=== PATIENT | male | born 1955 | race African-American/Black ===

== ENCOUNTER 2022-03-30 01:37 | Inpatient (IN) | payer OTHER ==
[~2022-03-30] VITALS: Ht 175.3 cm; Wt 97.5 kg
[2022-03-30] MEDS ORDERED: ACETAMINOPHEN 500MG TABLET PO ONE (03:15)
[2022-03-30] MEDS ORDERED: MORPHINE SULFATE 4 MG/ML CPJ (NOT FOR IM USE) IV STA (03:45)
[2022-03-30] MEDS ORDERED: ONDANSETRON HCL 4MG/2ML INJ IV STA (03:45)
[2022-03-30 04:18] LABS: BASOPHILS % 0.7 % (0.0-2.0); HEMATOCRIT. 26.9 % (42.0-52.0); HEMOGLOBIN. 8.8 g/dL (14.0-18.0); MEAN CORPUSCULAR HEMOGLOBIN 28.6 pg (28.0-32.0); MEAN CORPUSCULAR VOLUME 87.1 fL (80.0-94.0); MEAN PLATELET VOLUME 8.3 fl (7.4-10.4); NEUTROPHILS % 67.3 % (40.0-76.0); PLATELET 199 x1000/uL (130-400); RED BLOOD CELL COUNT 3.09 mill/uL (4.7-6.1); RED CELL DISTRIBUTION WIDTH 19.6 % (11.6-14.6)
[2022-03-30 05:07] LABS: CHLORIDE 94 mEq/L (98-107)
[2022-03-30 08:51] VITALS: BP 178/108
[2022-03-30 09:12] VITALS: BP 178/108
[2022-03-30] MEDS ORDERED: OMEP20TA23 MT (09:23)
[2022-03-30] MEDS ORDERED: FERR325T6 MT (09:23)
[2022-03-30] MEDS ORDERED: VITA400T9 PO (09:23)
[2022-03-30] MEDS ORDERED: CYAN50009 PO (09:23)
[2022-03-30] MEDS ORDERED: LEVO75TA7 MT (09:23)
[2022-03-30] MEDS ORDERED: HYDR2TAB7 MT (09:23)
[2022-03-30] MEDS ORDERED: FOLI-43 PO (09:23)
[2022-03-30] MEDS ORDERED: ASCO500C15 MT (09:23)
[2022-03-30] MEDS ORDERED: ASPI-1079 PO (09:23)
[2022-03-30] MEDS ORDERED: ATOR40TA70 MT (09:23)
[2022-03-30] MEDS ORDERED: ONDANSETRON HCL 4MG/2ML INJ IV PRN (10:15)
[2022-03-30] MEDS ORDERED: DOCUSATE SODIUM 100MG CAPSULE PO PRN (10:15)
[2022-03-30] MEDS ORDERED: ACETAMINOPHEN 325MG TABLET PO PRN ×2 (10:15)
[2022-03-30] MEDS ORDERED: GUAIFENESIN 200MG/10ML SUGAR FREE UDC PO PRN (10:15)
[2022-03-30] MEDS ORDERED: NITROGLYCERIN 0.4MG TABLET SL SL PRN (10:15)
[2022-03-30] MEDS ORDERED: CLONIDINE 0.1MG TABLET PO PRN (10:15)
[2022-03-30] MEDS ORDERED: MAGNESIUM/ALUMINUM HYDROXIDE/SIMETHICONE 30ML UDC PO PRN (10:15)
[2022-03-30] MEDS ORDERED: ZOLPIDEM TARTRATE 5MG TABLET PO PRN (10:15)
[2022-03-30] MEDS ORDERED: *PATIENT'S OWN MEDICATION STORAGE XX SCH (10:15)
[2022-03-30] MEDS ORDERED: IPRATROPIUM/ALBUTEROL 0.5-3(2.5)MG/3ML NEB NEB PRN (10:15)
[2022-03-30] MEDS: MANNITOL 12.5G (25%) VIAL 50ML IV NR ×2 (10:30→12:17)
[2022-03-30] MEDS ORDERED: TUBERCULIN,PURIF.PROT.DERIV. 5 TU/0.1 ML SYR ID ONE (10:30)
[2022-03-30] MEDS ORDERED: ERGO1250 PO (10:38)
[2022-03-30] MEDS: ENOXAPARIN 30MG/0.3ML SYR SUBCUT SCH (11:00)
[2022-03-30] MEDS: FAMOTIDINE 20MG TABLET PO SCH (11:00)
[2022-03-30 12:30] VITALS: BP 185/112
[2022-03-30] MEDS: HYDRALAZINE HCL 50MG TABLET PO SCH ×2 (14:00→21:03)
[2022-03-30] MEDS: AMLODIPINE 10MG TABLET PO SCH (15:14)
[2022-03-30 15:15] VITALS: BP 140/83
[2022-03-30] MEDS ORDERED: EPOETIN ALFA-EPBX 4,000 UNIT/ML VIAL SUBCUT SCH (21:00)
[2022-03-30] MEDS: LEVOTHYROXINE SODIUM 75MCG TABLET PO SCH (21:21)
[2022-03-30] MEDS: ATORVASTATIN CALCIUM 40MG TABLET PO SCH (21:21)
[2022-03-31 00:25] LABS: CREATINE KINASE MB FRACTION 6.6 ng/mL (0.5-3.6)
[2022-03-31 00:40] LABS: HEPATITIS B SURFACE ANTIGEN NEGATIVE
[2022-03-31] MEDS: LEVOTHYROXINE SODIUM 75MCG TABLET PO SCH (05:18)
[2022-03-31] MEDS: HYDRALAZINE HCL 50MG TABLET PO SCH ×3 (05:22→21:07)
[2022-03-31] MEDS ORDERED: LEVOTHYROXINE SODIUM 75MCG TABLET PO SCH (07:20)
[2022-03-31 08:00] VITALS: BP 165/101
[2022-03-31] MEDS: AMLODIPINE 10MG TABLET PO SCH (09:00)
[2022-03-31] MEDS: FAMOTIDINE 20MG TABLET PO SCH (09:00)
[2022-03-31] MEDS: FOLIC ACID/VITAMIN B COMP W-C TABLET PO SCH (10:00)
[2022-03-31] MEDS: ASPIRIN 325MG EC TABLET PO SCH (10:48)
[2022-03-31] MEDS: ASCORBIC ACID 500 MG TABLET PO SCH (10:52)
[2022-03-31] MEDS: ENOXAPARIN 30MG/0.3ML SYR SUBCUT SCH (11:00)
[2022-03-31 16:00] VITALS: BP 165/105
[2022-03-31 20:00] VITALS: BP 172/110
[2022-03-31] MEDS: ATORVASTATIN CALCIUM 40MG TABLET PO SCH (21:07)
[2022-04-01] MEDS: HYDRALAZINE HCL 50MG TABLET PO SCH ×3 (05:32→21:47)
[2022-04-01] MEDS: LEVOTHYROXINE SODIUM 75MCG TABLET PO SCH (07:51)
[2022-04-01] MEDS: AMLODIPINE 10MG TABLET PO SCH (09:00)
[2022-04-01] MEDS: ASPIRIN 325MG EC TABLET PO SCH (09:00)
[2022-04-01] MEDS: FAMOTIDINE 20MG TABLET PO SCH (09:00)
[2022-04-01] MEDS: ASCORBIC ACID 500 MG TABLET PO SCH (09:00)
[2022-04-01] MEDS: FOLIC ACID/VITAMIN B COMP W-C TABLET PO SCH (09:00)
[2022-04-01] MEDS ORDERED: REGADENOSON 0.4 MG/5 ML IV ONE (10:15)
[2022-04-01 11:00] VITALS: BP 148/86
[2022-04-01] MEDS: ENOXAPARIN 30MG/0.3ML SYR SUBCUT SCH (11:00)
[2022-04-01 17:00] VITALS: BP 153/89
[2022-04-01 20:00] VITALS: BP 144/98
[2022-04-01] MEDS: ATORVASTATIN CALCIUM 40MG TABLET PO SCH (21:00)
[2022-04-02] VITALS: BP 147/73
[2022-04-02 04:00] VITALS: BP 141/88
[2022-04-02] MEDS: HYDRALAZINE HCL 50MG TABLET PO SCH ×3 (06:00→21:18)
[2022-04-02] MEDS: LEVOTHYROXINE SODIUM 75MCG TABLET PO SCH (06:19)
[2022-04-02] MEDS: FAMOTIDINE 20MG TABLET PO SCH (09:00)
[2022-04-02] MEDS: FOLIC ACID/VITAMIN B COMP W-C TABLET PO SCH (09:00)
[2022-04-02] MEDS: AMLODIPINE 10MG TABLET PO SCH (09:00)
[2022-04-02] MEDS: ASPIRIN 81MG EC TABLET PO SCH (09:00)
[2022-04-02] MEDS: ISOSORBIDE DINITRATE 10MG TABLET PO SCH ×3 (09:00→17:00)
[2022-04-02] MEDS: ASCORBIC ACID 500 MG TABLET PO SCH (09:00)
[2022-04-02] MEDS: CARVEDILOL 6.25 MG TABLET PO SCH ×2 (09:00→21:17)
[2022-04-02] MEDS: ENOXAPARIN 30MG/0.3ML SYR SUBCUT SCH (11:00)
[2022-04-02 20:00] VITALS: BP 134/65
[2022-04-02] MEDS: ATORVASTATIN CALCIUM 40MG TABLET PO SCH (21:17)
[2022-04-03] VITALS: BP 127/81
[2022-04-03 04:00] VITALS: BP 132/84
[2022-04-03] MEDS: HYDRALAZINE HCL 50MG TABLET PO SCH ×2 (05:55→13:44)
[2022-04-03 08:00] VITALS: BP 129/89
[2022-04-03] MEDS: CARVEDILOL 6.25 MG TABLET PO SCH (09:00)
[2022-04-03] MEDS: AMLODIPINE 10MG TABLET PO SCH (09:00)
[2022-04-03 12:00] VITALS: BP 138/61
[2022-04-03] MEDS: FOLIC ACID/VITAMIN B COMP W-C TABLET PO SCH (13:40)
[2022-04-03] MEDS: ASPIRIN 81MG EC TABLET PO SCH (13:41)
[2022-04-03] MEDS: ISOSORBIDE DINITRATE 10MG TABLET PO SCH ×2 (13:42→13:45)
[2022-04-03] MEDS: ASCORBIC ACID 500 MG TABLET PO SCH (13:42)
[2022-04-03] MEDS: FAMOTIDINE 20MG TABLET PO SCH (13:42)
[2022-04-03] MEDS: LEVOTHYROXINE SODIUM 75MCG TABLET PO SCH (13:42)
[2022-04-03] MEDS: ENOXAPARIN 30MG/0.3ML SYR SUBCUT SCH (13:44)
[2022-04-03 16:00] VITALS: BP 141/85
== END 2022-04-03 18:22 | disposition left against medical advice (07) | DRG 280 ==
LOC: ER 01:37 → 6WST 05:18
PROVIDERS: ADMIT Internal Medicine; ATTEND Internal Medicine
PROC: 5A1D70Z Performance of Urinary Filtration, Intermittent, Less than 6 Hours Per Day (ICD-10-PCS; principal; 2022-03-30)
PROC: 5A1D70Z Performance of Urinary Filtration, Intermittent, Less than 6 Hours Per Day (ICD-10-PCS; 2022-04-01)
DX: I13.2 Hypertensive heart and chronic kidney disease with heart failure and with stage 5 chronic kidney disease, or end stage renal disease (principal); I21.A1 Myocardial infarction type 2; I50.43 Acute on chronic combined systolic (congestive) and diastolic (congestive) heart failure; N18.6 End stage renal disease; I16.1 Hypertensive emergency; D63.1 Anemia in chronic kidney disease; Z20.822 Contact with and (suspected) exposure to COVID-19; E83.51 Hypocalcemia; J45.909 Unspecified asthma, uncomplicated; E03.9 Hypothyroidism, unspecified; E78.00 Pure hypercholesterolemia, unspecified; B19.20 Unspecified viral hepatitis C without hepatic coma; R77.8 Other specified abnormalities of plasma proteins; G40.909 Epilepsy, unspecified, not intractable, without status epilepticus; J44.9 Chronic obstructive pulmonary disease, unspecified; Z53.29 Procedure and treatment not carried out because of patient's decision for other reasons; Z99.2 Dependence on renal dialysis; Z79.899 Other long term (current) drug therapy; Z59.00 Homelessness unspecified; Z91.15 Patient's noncompliance with renal dialysis; Z88.8 Allergy status to other drugs, medicaments and biological substances
CPT/HCPCS: 36415; 71045; 80053; 80061; 82550; 82553; 83036; 84484; 85025; 86705; 86706; 86709; 86803; 87340; 87426; 90585; 93005; 93306; 93970; 99285; J0885; J1650; J2150; J2270; J2405; J2785

== ENCOUNTER 2022-04-04 04:10 | Emergency (ER) | payer OTHER ==
[~2022-04-04] VITALS: Ht 172.7 cm; Wt 92.4 kg
[~2022-04-04 04:10] MED LIST: ASCO500C15 MT; ASPI-1079 PO; ATOR40TA70 MT; CYAN50009 PO; ERGO1250 PO; FERR325T6 MT; FOLI-43 PO; HYDR2TAB7 MT; LEVO75TA7 MT; OMEP20TA23 MT; VITA400T9 PO
[2022-04-04] MEDS ORDERED: CLONIDINE 0.1MG TABLET PO PRN (09:15)
[2022-04-04] MEDS ORDERED: ONDANSETRON HCL 4MG/2ML INJ IV PRN (09:15)
[2022-04-04] MEDS ORDERED: MAGNESIUM/ALUMINUM HYDROXIDE/SIMETHICONE 30ML UDC PO PRN (09:15)
[2022-04-04] MEDS ORDERED: KETOROLAC 15MG/ML VIAL IV PRN (09:15)
[2022-04-04] MEDS ORDERED: DOCUSATE SODIUM 100MG CAPSULE PO PRN (09:15)
[2022-04-04] MEDS ORDERED: AMLODIPINE 10MG TABLET PO SCH (09:30)
[2022-04-04 09:51] LABS: BASOPHILS % 0.6 % (0.0-2.0); EOSINOPHILS % 7.9 % (0.0-5.0); HEMATOCRIT. 32.4 % (42.0-52.0); HEMOGLOBIN. 10.3 g/dL (14.0-18.0); MEAN CORPUSCULAR VOLUME 88.6 fL (80.0-94.0); MEAN PLATELET VOLUME 8.7 fl (7.4-10.4); MONOCYTES % 14.3 % (2.0-8.0); NEUTROPHILS % 64.2 % (40.0-76.0); PLATELET 250 x1000/uL (130-400); RED BLOOD CELL COUNT 3.66 mill/uL (4.7-6.1); RED CELL DISTRIBUTION WIDTH 19.1 % (11.6-14.6)
[2022-04-04 09:57] LABS: CHLORIDE 96 mEq/L (98-107)
[2022-04-04 10:11] LABS: PHOSPHORUS 5.4 mg/dL (2.5-4.9)
[2022-04-04 10:15] VITALS: BP 135/85
[2022-04-04] MEDS ORDERED: ENOXAPARIN 40MG/0.4ML SYR SUBCUT SCH (11:00)
[2022-04-04] MEDS ORDERED: TRAMADOL 50MG TABLET PO PRN (11:30)
== END 2022-04-04 11:23 | disposition home or self-care (01) ==
LOC: ER 04:34 → CANBEDREQ 10:53 → ER 11:23
DX: R07.89 Other chest pain (principal); R00.0 Tachycardia, unspecified; D63.1 Anemia in chronic kidney disease; Z91.15 Patient's noncompliance with renal dialysis; I12.0 Hypertensive chronic kidney disease with stage 5 chronic kidney disease or end stage renal disease; N18.6 End stage renal disease; Z99.2 Dependence on renal dialysis; Z59.00 Homelessness unspecified; Z86.19 Personal history of other infectious and parasitic diseases
CPT/HCPCS: 36415; 71045; 80053; 83735; 84100; 85025; 93005; 99285

== ENCOUNTER 2022-04-04 20:00 | Emergency (ER) | payer OTHER ==
[~2022-04-04] VITALS: Ht 172.7 cm; Wt 92.4 kg
[2022-04-05] MEDS ORDERED: TRAMADOL 50MG TABLET PO ONE (03:00)
[2022-04-05 04:27] LABS: HEMATOCRIT. 30.8 % (42.0-52.0); HEMOGLOBIN. 9.9 g/dL (14.0-18.0); MEAN CORPUSCULAR HEMOGLOBIN 28.2 pg (28.0-32.0); MEAN CORPUSCULAR VOLUME 87.7 fL (80.0-94.0); MEAN PLATELET VOLUME 8.4 fl (7.4-10.4); PLATELET 256 x1000/uL (130-400); RED BLOOD CELL COUNT 3.51 mill/uL (4.7-6.1); RED CELL DISTRIBUTION WIDTH 19.2 % (11.6-14.6)
[2022-04-05 04:45] LABS: CHLORIDE 98 mEq/L (98-107)
[2022-04-05] MEDS ORDERED: TRAMADOL 50MG TABLET PO NR (04:45)
[2022-04-05 04:57] LABS: ETHANOL BLOOD < 10 mg/dL; PHOSPHORUS 5.9 mg/dL (2.5-4.9)
[2022-04-05 05:21] LABS: PLATELET ESTIMATE NORMAL
[2022-04-05] MEDS ORDERED: MAGNESIUM/ALUMINUM HYDROXIDE/SIMETHICONE 30ML UDC PO PRN (08:00)
[2022-04-05] MEDS ORDERED: CLONIDINE 0.1MG TABLET PO PRN (08:00)
[2022-04-05] MEDS ORDERED: IPRATROPIUM/ALBUTEROL 0.5-3(2.5)MG/3ML NEB NEB PRN (08:00)
[2022-04-05] MEDS ORDERED: GUAIFENESIN 200MG/10ML SUGAR FREE UDC PO PRN (08:00)
[2022-04-05] MEDS ORDERED: ONDANSETRON HCL 4MG/2ML INJ IV PRN (08:00)
[2022-04-05] MEDS ORDERED: ENOXAPARIN 40MG/0.4ML SYR SUBCUT SCH (09:00)
[2022-04-05 10:00] VITALS: BP 182/99
== END 2022-04-05 15:13 | disposition home or self-care (01) ==
LOC: ER 20:00 → SUPCPDRO 04-05 07:15 → CANBEDREQ 04-05 14:35 → ER 04-05 15:13
DX: I12.0 Hypertensive chronic kidney disease with stage 5 chronic kidney disease or end stage renal disease (principal); N18.6 End stage renal disease; D63.1 Anemia in chronic kidney disease; M79.18 Myalgia, other site; E83.39 Other disorders of phosphorus metabolism; E03.9 Hypothyroidism, unspecified; R01.1 Cardiac murmur, unspecified; Z99.2 Dependence on renal dialysis; Z91.15 Patient's noncompliance with renal dialysis; Z59.00 Homelessness unspecified
CPT/HCPCS: 36415; 80053; 80320; 83735; 84100; 85025; 93005; 99284; G0480

== ENCOUNTER 2022-04-08 04:38 | Emergency (ER) | payer OTHER ==
[~2022-04-08] VITALS: Ht 172.7 cm; Wt 93.8 kg
[~2022-04-08 04:38] MED LIST changes: -HYDR2TAB7 MT
[2022-04-08 06:43] LABS: CHLORIDE 96 mEq/L (98-107); HEMATOCRIT. 25.6 % (42.0-52.0); HEMOGLOBIN. 8.4 g/dL (14.0-18.0); MEAN CORPUSCULAR HEMOGLOBIN 28.6 pg (28.0-32.0); MEAN CORPUSCULAR VOLUME 86.8 fL (80.0-94.0); MEAN PLATELET VOLUME 7.7 fl (7.4-10.4); PLATELET 233 x1000/uL (130-400); RED BLOOD CELL COUNT 2.94 mill/uL (4.7-6.1); RED CELL DISTRIBUTION WIDTH 19.4 % (11.6-14.6)
[2022-04-08 08:00] VITALS: BP 143/66
[2022-04-08 10:03] LABS: PLATELET ESTIMATE NORMAL
== END 2022-04-08 08:56 | disposition home or self-care (01) ==
LOC: ER 04:38
DX: N18.6 End stage renal disease (principal); D64.9 Anemia, unspecified; J45.909 Unspecified asthma, uncomplicated; F17.290 Nicotine dependence, other tobacco product, uncomplicated; Z79.899 Other long term (current) drug therapy; Z99.2 Dependence on renal dialysis
CPT/HCPCS: 36415; 80053; 83735; 85025; 99283

== ENCOUNTER 2022-08-19 04:39 | Emergency (ER) | payer OTHER ==
[~2022-08-19] VITALS: Ht 172.7 cm; Wt 85.0 kg
[~2022-08-19 04:39] MED LIST changes: +ASPI-1497 MT; +COR6 MT; +HYDR-4134 MT; +ISOS10TA2 MT
[2022-08-19 05:10] VITALS: BP 131/76
[2022-08-19] MEDS ORDERED: SODI325T MT (05:58)
[2022-08-19] MEDS ORDERED: LEVO75TA7 MT (05:58)
[2022-08-19] MEDS ORDERED: PSEU30CA2 PO (09:29)
[2022-08-19] MEDS ORDERED: BENZ100C86 MT (09:29)
== END 2022-08-19 09:54 | disposition home or self-care (01) ==
LOC: ER 04:39
DX: J06.9 Acute upper respiratory infection, unspecified (principal); I10 Essential (primary) hypertension; E11.9 Type 2 diabetes mellitus without complications; J45.909 Unspecified asthma, uncomplicated; Z20.822 Contact with and (suspected) exposure to COVID-19; Z88.6 Allergy status to analgesic agent; Z79.899 Other long term (current) drug therapy; Z79.82 Long term (current) use of aspirin; Z98.890 Other specified postprocedural states; Z76.0 Encounter for issue of repeat prescription; Z86.59 Personal history of other mental and behavioral disorders; Z86.39 Personal history of other endocrine, nutritional and metabolic disease
CPT/HCPCS: 87426; 87804; 99283; C9803

== ENCOUNTER 2024-11-29 11:54 | Emergency (ER) | payer OTHER, MEDICAID ==
[~2024-11-29] VITALS: Ht 177.8 cm; Wt 88.0 kg
[~2024-11-29 11:54] MED LIST changes: +ASCO500C14 MT; -ASCO500C15 MT; +BENZ100C86 MT; -HYDR-4134 MT; +HYDR25TA78 MT; +PSEU30CA2 PO; +SODI325T MT
[2024-11-29 11:58] VITALS: BP 162/98; PULSE 86; RESP 16; TEMP 36.8; O2SAT 100
[2024-11-29] MEDS: LIDOCAINE 5% PATCH TOP SCH (12:30)
== END 2024-11-29 13:28 | disposition left against medical advice (07) ==
LOC: ER 12:09
DX: M25.562 Pain in left knee (principal); E11.9 Type 2 diabetes mellitus without complications; I10 Essential (primary) hypertension; J45.909 Unspecified asthma, uncomplicated; E03.9 Hypothyroidism, unspecified; Z79.82 Long term (current) use of aspirin; Z79.890 Hormone replacement therapy; Z79.899 Other long term (current) drug therapy; Z88.6 Allergy status to analgesic agent; Z99.2 Dependence on renal dialysis; Z98.890 Other specified postprocedural states
CPT/HCPCS: 99283